=== PATIENT | male | born 1970 | race Caucasian/White ===

== ENCOUNTER 2017-02-02 20:31 | Observation (INO) | payer SELFPAY ==
[2017-02-02] MEDS ORDERED: Sodium Chloride 0.9% 1,000 ML IV ONE (20:51)
--- NOTE | 2017-02-02 20:53 | C.PDOC ---
History Of Present Illness A 46 y/o male c/o left interior chest pain for 3 hrs [employer]. Pt notes the pain as mild in nature. Pt is able to speak in full sentences, but denies SOB, palpitations, diaphoresis, lightheadedness, fever, chills, nausea, vomiting, diarrhea, dizziness, or any other complaints. Pt notes that he ran out of medications and was evicted from his apartment. Time Seen by Provider: 02/02/17 20:51 Chief Complaint (Nursing): Chest Pain History Per: Patient History/Exam Limitations: no limitations Onset/Duration Of Symptoms: Hrs (3) Current Symptoms Are (Timing): Still Present Severity: Mild Associated Symptoms: denies: Diaphoresis Recent travel outside of the [place]: No Additional History Per: Patient Past Medical History Reviewed: Historical Data, Nursing Documentation, Vital Signs Vital Signs: Last Vital Signs Temp 98.6 F 02/02/17 20:36 Pulse 77 02/02/17 20:36 Resp 18 02/02/17 20:36 BP 133/81 02/02/17 20:50 Pulse Ox 95 02/02/17 22:10 - Medical History PMH: Diabetes, Fractures (L arm screws- FX), HTN, Hypercholesterolemia, Pancreatitis Surgical History: Coronary Stent (February 21, 2014 x1 stent) - [facility] Procedures PULSATION BALLOON IMPLAN (07/06/14) RT & LT HEART ANGIOCARD (07/06/14) Family History: States: Unknown Family Hx - Social History Hx Tobacco Use: No Hx Alcohol Use: No Hx Substance Use: No - Immunization History Hx Tetanus Toxoid Vaccination: No Hx Influenza Vaccination: No Hx Pneumococcal Vaccination: No Review Of Systems Except As Marked, All Systems Reviewed And Found Negative. Constitutional: Negative for: Fever, Chills Cardiovascular: Positive for: Chest Pain (Interior chest pain). Negative for: Palpitations, Light Headedness Respiratory: Negative for: Shortness of Breath Gastrointestinal: Negative for: Nausea, Vomiting, Diarrhea Neurological: Negative for: Dizziness Physical Exam - Physical Exam Appears: Non-toxic, No Acute Distress Skin: Warm, Dry Head: Atraumatic, Normacephalic Eye(s): bilateral: Normal Inspection Chest: Symmetrical Cardiovascular: Rhythm Regular, No Murmur Respiratory: Normal Breath Sounds, No Accessory Muscle Use, No Rales, No Rhonchi , No Wheezing Gastrointestinal/Abdominal: Soft, No Tenderness, No Guarding, No Rebound Neurological/Psych: Oriented x3, Normal Speech (Speaking in full sentences), Normal Cognition, Other (No focal deficit) ED Course And Treatment - Laboratory Results Result Diagrams: 02/02/17 21:11 02/02/17 21:11 ECG: Interpreted By Me, Viewed By Me ECG Rhythm: Sinus Rhythm ECG Interpretation: No Acute Changes Interpretation Of ECG: NSR, Q wave in III, AVF, inferior infarct age indeterminate. Rate From EC O2 Sat by Pulse Oximetry: 95 (RA) Pulse Ox Interpretation: Normal - Radiology CXR: Interpreted by Me CXR Interpretation: Yes: No Acute Disease, Other (normal chest x-ray). No: Infiltrates, Cardiomegaly, Pnemothorax Medical Decision Making Medical Decision Making: Impression: 46 y/o male c/o chest pain that began 3 hrs [employer]. Plans: EKG Blood labs CXR Toradol IV fluids Reassess Disposition Discussed With Dr.: Hernando Ocasio Doctor Will See Patient In The: Hospital Counseled Patient/Family Regarding: Diagnosis - Disposition Disposition: HOSPITALIZED Disposition Time: 22:09 Condition: STABLE - POA Present On Arrival: None - Clinical Impression Clinical Impression: Chest pain, Diabetes mellitus - Scribe Statement The provider has reviewed the documentation as recorded by the Scribgila mariscal All medical record entries made by the Navidibe were at my direction and personally dictated by me. I have reviewed the chart and agree that the record accurately reflects my personal performance of the history, physical exam, medical decision making, and the department course for this patient. I have also personally directed, reviewed, and agree with the discharge instructions and disposition.
--- NOTE | 2017-02-02 20:55 | C.PDOC ---
Time Seen by Provider: 02/02/17 20:51 Chief Complaint (Nursing): Chest Pain Past Medical History Vital Signs: Last Vital Signs Temp 98.6 F 02/02/17 20:36 Pulse 77 02/02/17 20:36 Resp 18 02/02/17 20:36 BP 149/87 02/02/17 20:36 Pulse Ox 95 02/02/17 20:36 - Medical History PMH: Diabetes, Fractures (L arm screws- FX), HTN, Hypercholesterolemia, Pancreatitis Surgical History: Coronary Stent (February 21, 2014 x1 stent) - [facility] Procedures PULSATION BALLOON IMPLAN (07/06/14) RT & LT HEART ANGIOCARD (07/06/14) Family History: States: Unknown Family Hx - Social History Hx Tobacco Use: No Hx Alcohol Use: No Hx Substance Use: No - Immunization History Hx Tetanus Toxoid Vaccination: No Hx Influenza Vaccination: No Hx Pneumococcal Vaccination: No ED Course And Treatment ECG: Interpreted By Me, Viewed By Me ECG Rhythm: Sinus Rhythm ECG Interpretation: No Acute Changes Interpretation Of ECG: NSR, Q wave in III, AVF, inferior infarct age indeterminate. Rate From EC O2 Sat by Pulse Oximetry: 95 Pulse Ox Interpretation: Normal Disposition - Disposition Referrals: Non [facility] Provider, [Primary Care Provider] -
[2017-02-02] MEDS ORDERED: Sodium Chloride 0.9% 1,000 ML ONE (21:12)
[2017-02-02] MEDS ORDERED: Nitroglycerin 2% Ointment Foilpak UD TOP STA (21:12)
[2017-02-02 21:30] LABS: BASO % 0.4 % (0.0-2.0); EOS # 0.1 K/uL (0.0-0.7); HEMATOCRIT 41.9 % (35.0-51.0); LYMPH # 2.4 K/uL (1.0-4.3); LYMPH % 31.2 % (20.0-40.0); MEAN CELL VOLUME 87.2 fL (80.0-94.0); MEAN CORPUSCULAR HEMOGLOBIN 28.7 pg (27.0-31.0); MEAN CORPUSCULAR HGB CONC 32.9 g/dL (33.0-37.0); MONO # 0.6 K/uL (0.0-0.8); MONO % 8.2 % (0.0-10.0); RED CELL DISTRIBUTION WIDTH 13.7 % (11.5-14.5); WHITE BLOOD COUNT 7.9 K/uL (4.8-10.8)
[2017-02-02 21:41] LABS: CHLORIDE 105 mmol/L (98-107); POTASSIUM 3.4 mmol/L (3.6-5.2); SODIUM 139 mmol/L (132-148)
[2017-02-02 21:42] LABS: PARTIAL THROMBOPLASTIN TIME 30 SECONDS (21-34)
[2017-02-02 21:43] LABS: GFR AFRICAN-AMERICAN > 60
[2017-02-02 21:44] LABS: ALKALINE PHOSPHATASE 102 U/L (38-126); ALT/SGPT 28 U/L (21-72); AST/SGOT 28 U/L (17-59); BILIRUBIN,TOTAL 0.6 mg/dL (0.2-1.3); BLOOD UREA NITROGEN 17 mg/dL (9-20); CALCIUM 8.7 mg/dl (8.6-10.4); CARBON DIOXIDE 24 mmol/L (22-30); GLUCOSE,RANDOM 385 mg/dL (75-110); TOTAL PROTEIN 7.5 g/dL (6.3-8.3)
[2017-02-02] MEDS ORDERED: Nitroglycerin 2% Ointment Foilpak UD TOP ONE (21:44)
[2017-02-02] MEDS ORDERED: (Novolin R) Insulin Human Regular 100 units/ml vial SC STA (22:11)
[2017-02-02] MEDS ORDERED: (Novolin R) Insulin Human Regular 100 units/ml vial ONE (22:28)
--- NOTE | 2017-02-03 02:43 | CP.PCM.HP ---
History of Present Illness - History of Present Illness History of Present Illness: CC: chest pain HPI: Patient is a 46 M PMHx CAD, VA, DM, HTN, Hyperlipidemia presenting with chest pain for 3 days. Patient reports pain is in the middle of his chest and does not radiate down his arm or up his jaw and he has no associated SOB or diaphoresis. Patient reports the pain comes and goes and is intermittent throughout the day usually when he is thinking of things that are troubling him. 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 Patient states when he gets anxious he has the chest pain. Patient denied fever, chills, weakness, headache, dizziness, palpitations, SOB, cough, abd pain, nause,a vomiting, bowel/bladder complaints, pain/swelling in his legs bilaterally, back pain, recent travel, recent sickness, change in weight, change in appetite. PMHx: CAD, VA, DM, HTN, Hyperlipidemia PSHx: pancreatic surgery and hernia repair Meds: pls see chart Allergies: NKDA FHx: father has heart problems and is 66years old SHx: denies smoking, past etoh abuse history but quit, denies illicit drug use. Patient told ED physician he was recently evicted from home and ran out of his meds. Patient works in construction. PMD: denies Present on Admission - Present on Admission Any Indicators Present on Admission: No Review of Systems - Constitutional Constitutional: As Per HPI. absent: Chills, Fever, Weakness - EENT Eyes: As Per HPI. absent: Change in Vision Ears: As Per HPI. absent: Dizziness Nose/Mouth/Throat: As Per HPI. absent: Post Nasal Drip, Sore Throat - Cardiovascular Cardiovascular: As Per HPI, Chest Pain. absent: Chest Pain with Activity, Dyspnea, Dyspnea on Exertion, Edema, Leg Edema - Respiratory Respiratory: As Per HPI. absent: Cough, Dyspnea, Chest Congestion - Gastrointestinal Gastrointestinal: As Per HPI. absent: Abdominal Pain, Constipation, Diarrhea, Nausea, Vomiting - Genitourinary Genitourinary: As Per HPI. absent: Dysuria, Urinary Frequency - Musculoskeletal Musculoskeletal: As Per HPI. absent: Numbness, Tingling - Integumentary Integumentary: As Per HPI, Rash (on top of patient's head) - Neurological Neurological: As Per HPI. absent: Tingling, Weakness - Psychiatric Psychiatric: As Per HPI, Anxiety - Endocrine Endocrine: As Per HPI. absent: Polydipsia, Polyphagia, Polyuria - Hematologic/Lymphatic Hematologic: As Per HPI. absent: Easy Bleeding, Easy Bruising, Lymphadenopathy Past Patient History - Infectious Disease Hx of Infectious Diseases: None - Past Medical History & Family History Past Medical History?: Yes - Past Social History Smoking Status: Never Smoked - CARDIAC Hx Cardiac Disorders: Yes Hx Hypercholesterolemia: Yes Hx Hypertension: Yes - PULMONARY Hx Respiratory Disorders: No - NEUROLOGICAL Hx Neurological Disorder: No - HEENT Hx HEENT Problems: No - RENAL Hx Chronic Kidney Disease: No - ENDOCRINE/METABOLIC Hx Endocrine Disorders: Yes Hx Diabetes Mellitus Type 2: Yes - HEMATOLOGICAL/ONCOLOGICAL Hx Blood Disorders: No - INTEGUMENTARY Hx Dermatological Problems: No - MUSCULOSKELETAL/RHEUMATOLOGICAL Hx Musculoskeletal Disorders: Yes Hx Falls: No Hx Fractures: Yes (L arm screws- FX) - GASTROINTESTINAL Hx Gastrointestinal Disorders: Yes Hx Pancreatitis: Yes - GENITOURINARY/GYNECOLOGICAL Hx Genitourinary Disorders: No - PSYCHIATRIC Hx Psychophysiologic Disorder: No Hx Substance Use: No - SURGICAL HISTORY Hx Surgeries: Yes Hx Coronary Stent: Yes (February 21, 2014 x1 stent) - ANESTHESIA Hx Anesthesia: Yes Hx Anesthesia Reactions: No Hx Malignant Hyperthermia: No Meds Allergies/Adverse Reactions: Allergies Allergy/AdvReac Type Severity Reaction Status Date / Time No Known Allergies Allergy Verified 02/02/17 20:36 Physical Exam - Constitutional Appears: Well, Non-toxic, No Acute Distress - Head Exam Head Exam: ATRAUMATIC, NORMAL INSPECTION, NORMOCEPHALIC Additional comments: ring rashes on top of patient's head - Eye Exam Eye Exam: EOMI, Normal appearance, PERRL. absent: Conjunctival injection, Scleral icterus Pupil Exam: NORMAL ACCOMODATION - ENT Exam ENT Exam: Mucous Membranes Moist - Neck Exam Neck exam: Positive for: Normal Inspection. Negative for: Lymphadenopathy - Respiratory Exam Respiratory Exam: Clear to Auscultation Bilateral, NORMAL BREATHING PATTERN. absent: Accessory Muscle Use, Rales, Rhonchi, Wheezes, Respiratory Distress - Cardiovascular Exam Cardiovascular Exam: REGULAR RHYTHM, RRR, +S1, +S2. absent: Systolic Murmur - GI/Abdominal Exam GI & Abdominal Exam: Normal Bowel Sounds, Soft. absent: Firm, Guarding, Rigid, Tenderness - Extremities Exam Extremities exam: Positive for: normal capillary refill, normal inspection, pedal pulses present. Negative for: pedal edema, tenderness - Back Exam Back exam: NORMAL INSPECTION. absent: rash noted, tenderness - Neurological Exam Neurological exam: Alert, CN II-XII Intact, Oriented x3 - Psychiatric Exam Psychiatric exam: Anxious - Skin Skin Exam: Dry, Intact, Normal Color, Warm Results - Vital Signs Recent Vital Signs: Last Vital Signs Temp 98.0 F 02/03/17 00:15 Pulse 70 02/03/17 01:15 Resp 20 02/03/17 00:15 BP 115/69 02/03/17 00:15 Pulse Ox 96 02/03/17 00:15 - Labs Result Diagrams: 02/02/17 21:11 02/02/17 21:11 Labs: Laboratory Results - last 24 hr 02/03/17 00:08 POC Glucose (mg/dL) 243 H Assessment & Plan - Assessment and Plan (Free Text) Assessment: 46 M PMHx CAD, VA, DM, HTN, Hyperlipidemia presenting with chest pain for 3 days Plan: Chest pain r/o ACS -first XIOMARA and EKG negative -f/u XIOMARA and EKG x 2 -ASA 81mg po daily -Likely secondary to anxiety and life stressors -f/u echo -Dr Sandoval cardiology consult Hx of DM2 -HgbA1c -Accucheck -RISS Hx of HTN -Toprol xl 25mg po daily -Monitor -f/u Lipid panel and TSH Hx of HLD -f/u lipid panel -Crestor 5mg po hs PPX -Heparin 5000u sc q12 -Pepcid 20mg po bid -SCDs -Heart healthy mod consistent carb diet Case discussed with Dr. Amarjit Mariee PGY1
[2017-02-03 08:18] LABS: BASO % 0.3 % (0.0-2.0); EOS # 0.1 K/uL (0.0-0.7); EOS % 1.3 % (0.0-4.0); HEMATOCRIT 38.3 % (35.0-51.0); LYMPH # 2.5 K/uL (1.0-4.3); LYMPH % 31.3 % (20.0-40.0); MEAN CELL VOLUME 87.8 fL (80.0-94.0); MEAN CORPUSCULAR HEMOGLOBIN 28.9 pg (27.0-31.0); MEAN CORPUSCULAR HGB CONC 32.9 g/dL (33.0-37.0); MEAN PLATELET VOLUME 8.8 fL (7.2-11.7); MONO # 0.6 K/uL (0.0-0.8); MONO % 7.3 % (0.0-10.0); NRBC % 0.1 % (0.0-2.0)
[2017-02-03] MEDS: (Novolog) Insulin Aspart, Recombinant 100 u/ml 10 ml vial SC SCH ×4 (08:22→21:34)
--- NOTE | 2017-02-03 08:49 | RAD ---
HISTORY: chest pain COMPARISON: Chest x-ray performed 10/03/26 TECHNIQUE: Chest PA and lateral FINDINGS: Examination limited by habitus. LUNGS: Mild biapical pleural thickening. No focal consolidation. Please note that chest x-ray has limited sensitivity for the detection of pulmonary masses. PLEURA: No significant pleural effusion identified. No definite pneumothorax . CARDIOVASCULAR: Heart size appears top normal. OSSEOUS STRUCTURES: No acute osseous abnormality identified. VISUALIZED UPPER ABDOMEN: Unremarkable. OTHER FINDINGS: None. IMPRESSION: Mild biapical pleural thickening. No focal consolidation, significant pleural effusion, or definite pneumothorax identified.
[2017-02-03] MEDS: Metoprolol Succinate 25 mg XL Tab PO SCH (09:26)
[2017-02-03 09:50] LABS: CHLORIDE 109 mmol/L (98-107)
[2017-02-03 09:51] LABS: POTASSIUM 3.4 mmol/L (3.6-5.2); SODIUM 139 mmol/L (132-148)
[2017-02-03 09:53] LABS: BILIRUBIN,TOTAL 0.5 mg/dL (0.2-1.3); CARBON DIOXIDE 23 mmol/L (22-30); CHOLESTEROL 183 mg/dL (0-199); GFR AFRICAN-AMERICAN > 60; TOTAL PROTEIN 6.3 g/dL (6.3-8.3)
[2017-02-03 09:54] LABS: ALKALINE PHOSPHATASE 89 U/L (38-126); ALT/SGPT 26 U/L (21-72); AST/SGOT 24 U/L (17-59); BLOOD UREA NITROGEN 18 mg/dL (9-20); GLUCOSE,RANDOM 224 mg/dL (75-110)
[2017-02-03 10:19] LABS: T4 8.18 ug/dL (5.5-11.0)
[2017-02-03 10:32] LABS: THYROID STIMULATING HORMONE 4.42 mIU/L (0.46-4.68)
[2017-02-03] MEDS ORDERED: Potassium Chloride 20 mEq ER Tab PO ONE (11:45)
--- NOTE | 2017-02-03 14:33 | CP.PCM.PN ---
Subjective - Date & Time of Evaluation Date of Evaluation: 02/03/17 Time of Evaluation: 14:31 - Subjective Subjective: Patient seen and examined at bedside. Patient is resting comfortably. No acute events overnight per nursing. Patient denies chest pain currently. He denies shortness of breath and palpitations. Patient reports he believes chest pain occurred due to stress from work/argument. Patient seems unaware of his medical history as he does not believe he has cardiac stents. It was discussed with patient that he will need better diabetes medical management. Patient denies fever, chills, shortness of breath, palpitations, abdominal pain, nausea, vomiting, constipation, diarrhea, urinary frequency and dysuria. Objective - Vital Signs/Intake and Output Vital Signs (last 24 hours): Temp Pulse Resp BP Pulse Ox 98.3 F 62 17 106/54 L 97 02/03/17 07:10 02/03/17 07:19 02/03/17 07:10 02/03/17 07:10 02/03/17 07:10 Intake and Output: 02/03/17 02/03/17 06:59 18:59 Intake Total 1200 Balance 1200 - Medications Medications: Current Medications Aspirin (Aspirin Chewable) 81 mg PO DAILY [facility] Last Admin: 02/03/17 09:26 Dose: 81 mg Famotidine (Pepcid) 20 mg PO BID [facility] Last Admin: 02/03/17 09:26 Dose: 20 mg Heparin Sodium (Porcine) (Heparin) 5,000 units SC Q12 [facility] Last Admin: 02/03/17 09:26 Dose: 5,000 units Insulin Aspart (Novolog) 0 unit SC ACHS [facility] PRN Reason: Protocol Last Admin: 02/03/17 11:55 Dose: 4 unit Metoprolol Succinate (Toprol Xl) 25 mg PO DAILY [facility] Last Admin: 02/03/17 09:26 Dose: 25 mg Rosuvastatin Calcium (Crestor) 5 mg PO HS [facility] - Labs Labs: 02/03/17 07:57 02/03/17 07:57 PT 10.8 SECONDS (9.7-12.2) 02/02/17 21:11 INR 1.0 02/02/17 21:11 APTT 30 SECONDS (21-34) 02/03/17 07:57 - Constitutional Appears: Non-toxic, No Acute Distress - Head Exam Head Exam: ATRAUMATIC, NORMAL INSPECTION, NORMOCEPHALIC - Eye Exam Eye Exam: EOMI, Normal appearance, PERRL - ENT Exam ENT Exam: Mucous Membranes Moist - Respiratory Exam Respiratory Exam: Clear to Ausculation Bilateral, NORMAL BREATHING PATTERN. absent: Rales, Rhonchi, Wheezes - Cardiovascular Exam Cardiovascular Exam: +S1, +S2. absent: Tachycardia - GI/Abdominal Exam GI & Abdominal Exam: Soft, Normal Bowel Sounds. absent: Firm, Guarding, Tenderness - Extremities Exam Extremities Exam: Normal Inspection. absent: Pedal Edema, Tenderness - Neurological Exam Neurological Exam: Alert, Awake, Oriented x3 - Psychiatric Exam Psychiatric exam: Normal Affect, Normal Mood - Skin Additional comments: keloid noted to occipital scalp Assessment and Plan - Assessment and Plan (Free Text) Assessment: Chest pain r/o ACS -XIOMARA x2 negative, f/u third XIOMARA -EKG NSR -repeat EKG: no acute changes -Cardiology, Dr. Sandoval, consulted. Help appreciated -f/u Echocardiogram -ASA 81mg po daily -TSH/T4 wnl Uncontrolled DM2 -HgbA1c 13.0 -Accucheck -RISS -Monitor Hx of HTN -Toprol xl 25mg po daily -Monitor Hx of HLD -Lipid panel: Triglycerides 410, CHL 183, LDL 83, HDL 38 -Crestor 5mg po hs PPX -Heparin 5000u sc q12 -Pepcid 20mg po bid -SCDs -Heart healthy mod consistent carb diet
[2017-02-04] MEDS: (Novolog) Insulin Aspart, Recombinant 100 u/ml 10 ml vial SC SCH ×2 (08:06→12:53)
[2017-02-04 08:54] VITALS: BP 113/76; PULSE 67; RESP 18; TEMP 97.9; O2SAT 96
[2017-02-04 09:04] LABS: BASO % 0.4 % (0.0-2.0); EOS # 0.1 K/uL (0.0-0.7); EOS % 1.6 % (0.0-4.0); HEMATOCRIT 44.1 % (35.0-51.0); LYMPH # 2.8 K/uL (1.0-4.3); LYMPH % 35.6 % (20.0-40.0); MEAN CELL VOLUME 87.7 fL (80.0-94.0); MEAN CORPUSCULAR HEMOGLOBIN 28.8 pg (27.0-31.0); MEAN CORPUSCULAR HGB CONC 32.9 g/dL (33.0-37.0); MEAN PLATELET VOLUME 9.2 fL (7.2-11.7); MONO # 0.6 K/uL (0.0-0.8); MONO % 7.4 % (0.0-10.0); NRBC % 0.1 % (0.0-2.0); WHITE BLOOD COUNT 7.8 K/uL (4.8-10.8)
[2017-02-04 09:24] LABS: CHLORIDE 104 mmol/L (98-107); SODIUM 136 mmol/L (132-148)
[2017-02-04 09:25] LABS: POTASSIUM 3.5 mmol/L (3.6-5.2)
[2017-02-04 09:27] LABS: ALB/GLOB RATIO 0.9 (1.0-2.1); ALKALINE PHOSPHATASE 104 U/L (38-126); AST/SGOT 26 U/L (17-59); BILIRUBIN,TOTAL 0.7 mg/dL (0.2-1.3); BLOOD UREA NITROGEN 13 mg/dL (9-20); CARBON DIOXIDE 24 mmol/L (22-30); GFR AFRICAN-AMERICAN > 60; GLUCOSE,RANDOM 247 mg/dL (75-110); TOTAL PROTEIN 7.2 g/dL (6.3-8.3)
[2017-02-04 09:28] LABS: ALT/SGPT 28 U/L (21-72); MAGNESIUM 2.1 mg/dL (1.6-2.3)
[2017-02-04] MEDS: Metoprolol Succinate 25 mg XL Tab PO SCH (10:10)
--- NOTE | 2017-02-04 14:39 | CP.PCM.DIS ---
Provider - Provider Date of Admission: 02/02/17 22:12 Attending physician: Hernando Ocasio MD Primary care physician: Referred to [facility] Consults: Cardio - Dr. Sandoval Time Spent in preparation of Discharge (in minutes): 40 Hospital Course - Lab Results Lab Results: Most Recent Lab Values WBC 7.8 K/uL (4.8-10.8) 02/04/17 08:50 RBC 5.03 Mil/uL (4.40-5.90) 02/04/17 08:50 Hgb 14.5 g/dL (12.0-18.0) 02/04/17 08:50 Hct 44.1 % (35.0-51.0) 02/04/17 08:50 MCV 87.7 fL (80.0-94.0) 02/04/17 08:50 MCH 28.8 pg (27.0-31.0) 02/04/17 08:50 MCHC 32.9 g/dL (33.0-37.0) L 02/04/17 08:50 RDW 14.0 % (11.5-14.5) 02/04/17 08:50 Plt Count 272 K/uL (130-400) 02/04/17 08:50 MPV 9.2 fL (7.2-11.7) 02/04/17 08:50 Neut % (Auto) 55.0 % (50.0-75.0) 02/04/17 08:50 Lymph % (Auto) 35.6 % (20.0-40.0) 02/04/17 08:50 Norton % (Auto) 7.4 % (0.0-10.0) 02/04/17 08:50 Eos % (Auto) 1.6 % (0.0-4.0) 02/04/17 08:50 Baso % (Auto) 0.4 % (0.0-2.0) 02/04/17 08:50 Neut # 4.3 K/uL (1.8-7.0) 02/04/17 08:50 Lymph # 2.8 K/uL (1.0-4.3) 02/04/17 08:50 Norton # 0.6 K/uL (0.0-0.8) 02/04/17 08:50 Eos # 0.1 K/uL (0.0-0.7) 02/04/17 08:50 Baso # 0.0 K/uL (0.0-0.2) 02/04/17 08:50 PT 10.8 SECONDS (9.7-12.2) 02/02/17 21:11 INR 1.0 02/02/17 21:11 APTT 30 SECONDS (21-34) 02/03/17 07:57 D-Dimer, Quantitative < 200 ng/mlDDU (0-243) 02/02/17 21:11 Sodium 136 mmol/L (132-148) 02/04/17 08:50 Potassium 3.5 mmol/L (3.6-5.2) L 02/04/17 08:50 Chloride 104 mmol/L (98-107) 02/04/17 08:50 Carbon Dioxide 24 mmol/L (22-30) 02/04/17 08:50 Anion Gap 12 (10-20) 02/04/17 08:50 BUN 13 mg/dL (9-20) 02/04/17 08:50 Creatinine 0.6 MG/DL (0.8-1.5) L 02/04/17 08:50 Est GFR ( Amer) > 60 02/04/17 08:50 Est GFR (Non-Af Amer) > 60 02/04/17 08:50 POC Glucose (mg/dL) 240 mg/dL (65-110) H 02/04/17 11:33 Random Glucose 247 mg/dL (75-110) H 02/04/17 08:50 Hemoglobin A1c 13.0 % (4.2-6.5) H D 02/03/17 07:57 Calcium 9.0 mg/dl (8.6-10.4) 02/04/17 08:50 Phosphorus 3.0 mg/dL (2.5-4.5) 02/03/17 07:57 Magnesium 2.1 mg/dL (1.6-2.3) 02/04/17 08:50 Total Bilirubin 0.7 mg/dL (0.2-1.3) 02/04/17 08:50 AST 26 U/L (17-59) 02/04/17 08:50 ALT 28 U/L (21-72) 02/04/17 08:50 Alkaline Phosphatase 104 U/L (38-126) 02/04/17 08:50 Total Creatine Kinase 153 U/L (55-170) 02/03/17 07:57 CK-MB (Mass) 0.77 ng/mL (0.0-3.38) 02/03/17 07:57 Troponin I < 0.0120 ng/mL (0.00-0.120) 02/02/17 21:11 Troponin I, Quant < 0.0120 ng/mL (0.00-0.120) 02/03/17 07:57 Total Protein 7.2 g/dL (6.3-8.3) 02/04/17 08:50 Albumin 3.5 g/dL (3.5-5.0) 02/04/17 08:50 Globulin 3.7 gm/dL (2.2-3.9) 02/04/17 08:50 Albumin/Globulin Ratio 0.9 (1.0-2.1) L 02/04/17 08:50 Triglycerides 410 mg/dL (0-149) H D 02/03/17 07:57 Cholesterol 183 mg/dL (0-199) 02/03/17 07:57 LDL Cholesterol Direct 83 mg/dL (0-129) 02/03/17 07:57 HDL Cholesterol 38 mg/dL (30-70) 02/03/17 07:57 Thyroxine (T4) 8.18 ug/dL (5.5-11.0) 02/03/17 07:57 TSH 3rd Generation 4.42 mIU/L (0.46-4.68) 02/03/17 07:57 - Hospital Course Hospital Course: On admission: Patient is a 46 M PMHx CAD, IN, DM, HTN, Hyperlipidemia presenting with chest pain for 3 days. Patient reports pain is in the middle of his chest and does not radiate down his arm or up his jaw and he has no associated SOB or diaphoresis. Patient reports the pain comes and goes and is intermittent throughout the day usually when he is thinking of things that are troubling him. 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 Patient states when he gets anxious he has the chest pain. Patient denied fever, chills, weakness, headache, dizziness, palpitations, SOB, cough, abd pain, nause,a vomiting, bowel/bladder complaints, pain/swelling in his legs bilaterally, back pain, recent travel, recent sickness, change in weight, change in appetite. Hospital Course: Patient worked up for chest pain. Patient had 3 negative ROMIs. EKG shows no change from Sep [address] Sandoval read the ECHO for us which shows left ventricular enlargement, EF of 54%, mild to moderate pulmonary hypertension and inferior wall hypokinesis. Patient also had HgbA1C of 13. Patient started on metformin [address] Varghese did not want to start more than that as to not irritate his liver. Patietn should be increased to metformin 1000mg PO BID and may need to be put on insulin. Patient seen and examined this AM. He had no pain and felt great. On discharge: Patient to be discharged home per Dr. Varghese. Patient has diabetes and CAD. Patient did not have a heart attack during this admission but it seems he had an inferior wall IN in the past. Patient's HgbA1C (diabetes number) was 13, which should be below 7. Patient MUST take newly prescribed medications as directed below. Patient should follow up with the [facility] (the clinic in the basement) within one week. Patient needs to get a script for a higher dose of metformin (diabetes medication) from the clinic. He was not started on a higher dose on discharge because we do not want to cause any liver problems. Patient needs metformin to be gradually increased. Patient also needs to obtain a referral for the fly maker, Dr. Sandoval, to get an outpatient stress test. Patient should return to ED immediately if symptoms return or worsen. Newly prescribed medications: Aspirin 81mg by mouth once a day #30 Simvastatin 10mg by mouth every night #30 Metformin 500mg by mouth twice a day #60 Metoprolol tartrate 12.5mg by mouth twice a day #60 Google translate to Pashto: Paciente a ser dado de liss por el Dr. Varghese. El paciente tiene diabetes y CAD. El paciente no tuvo un ataque al corazn shivani esta admisin, maulik parece que denita darlin pared inferior IN en el pasado. El HgbA1C del paciente (n bushra de diabetes) fue de 13, que debe ser inferior a 7. El paciente DEBE viri los nuevos medicamentos recetados bryce se indica a continuacin. El paciente debe hacer un seguimiento con el [facility] dentro de darlin semana. El paciente necesita obtener un flor para darlin dosis ms liss de metformina (medicamento para la diabetes) de la cl rosita. No se inici darlin dosis ms liss al liss porque no queremos causar ningn problema de hgado. El paciente necesita metformina para ser aumentado gradualmente. El paciente tambin necesita obtener darlin derivacin para que el cardilogo, el Dr. Sandoval, reciba darlin prueba de estrs ambulatorio. El paciente debe regresar a la DE inmediatamente si los sntomas regresan o empeoran. Medicamentos recin prescritos: Aspirina 81mg por va oral darlin vez al da # 30 Simvastatina 10 mg por va oral cada noche # 30 Metformina 500mg por va oral dos veces al da # 60 Metoprolol tartrato 12,5 mg por va oral dos veces al da # 60 Discharge Exam - Head Exam Head Exam: ATRAUMATIC, NORMAL INSPECTION, NORMOCEPHALIC - Eye Exam Eye Exam: EOMI - ENT Exam ENT Exam: Mucous Membranes Moist - Respiratory Exam Respiratory Exam: Clear to PA & Lateral, NORMAL BREATHING PATTERN, UNREMARKABLE. absent: Rales, Rhonchi, Wheezes - Cardiovascular Exam Cardiovascular Exam: REGULAR RHYTHM, +S1, +S2. absent: Gallop, Rubs, Systolic Murmur - GI/Abdominal Exam GI & Abdominal Exam: Normal Bowel Sounds, Soft. absent: Tenderness - Extremities Exam Extremities exam: normal capillary refill, pedal pulses present - Neurological Exam Neurological exam: Alert, Oriented x3 - Psychiatric Exam Psychiatric exam: Normal Affect, Normal Mood - Skin Skin Exam: Normal Color, Warm Discharge Plan - Discharge Medications Prescriptions: Aspirin [Aspirin Chewable] 81 mg PO DAILY #30 metFORMIN [glucOPHAGE] 500 mg PO BIDCC #60 tab Metoprolol Tartrate [Lopressor] 12.5 mg PO BID #60 tab Simvastatin 10 mg PO HS #30 tablet - Follow Up Plan Condition: STABLE Disposition: HOME/ ROUTINE Instructions: Chest Pain (DC), Diabetes Mellitus Type 2 in Adults (DC) Additional Instructions: Patient to be discharged home per Dr. Varghese. Patient has diabetes and CAD. Patient did not have a heart attack during this admission but it seems he had an inferior wall IN in the past. Patient's HgbA1C (diabetes number) was 13, which should be below 7. Patient MUST take newly prescribed medications as directed below. Patient should follow up with the [facility] (the clinic in the basement) within one week. Patient needs to get a script for a higher dose of metformin (diabetes medication) from the clinic. He was not started on a higher dose on discharge because we do not want to cause any liver problems. Patient needs metformin to be gradually increased. Patient also needs to obtain a referral for the fly maker, Dr. Sandoval, to get an outpatient stress test. Patient should return to ED immediately if symptoms return or worsen. Newly prescribed medications: Aspirin 81mg by mouth once a day #30 Simvastatin 10mg by mouth every night #30 Metformin 500mg by mouth twice a day #60 Metoprolol tartrate 12.5mg by mouth twice a day #60 Google translate to Pashto: Paciente a ser dado de liss por el Dr. Varghese. El paciente tiene diabetes y CAD. El paciente no tuvo un ataque al corazn shivani esta admisin, maulik parece que denita darlin pared inferior IN en el pasado. El HgbA1C del paciente (n bushra de diabetes) fue de 13, que debe ser inferior a 7. El paciente DEBE viri los nuevos medicamentos recetados bryce se indica a continuacin. El paciente debe hacer un seguimiento con el [facility] dentro de darlin semana. El paciente necesita obtener un flor para darlin dosis ms liss de metformina (medicamento para la diabetes) de la cl rosita. No se inici darlin dosis ms liss al liss porque no queremos causar ningn problema de hgado. El paciente necesita metformina para ser aumentado gradualmente. El paciente tambin necesita obtener darlin derivacin para que el cardilogo, el Dr. Sandoval, reciba darlin prueba de estrs ambulatorio. El paciente debe regresar a la DE inmediatamente si los sntomas regresan o empeoran. Medicamentos recin prescritos: Aspirina 81mg por va oral darlin vez al da # 30 Simvastatina 10 mg por va oral cada noche # 30 Metformina 500mg por va oral dos veces al da # 60 Metoprolol tartrato 12,5 mg por va oral dos veces al da # 60 Referrals: [facility] [Outside] Kamron Sandoval MD [Staff Provider] - Non [facility] Provider, [Non-Staff] -
--- NOTE | 2017-02-04 16:20 | CARD ---
APPROVED REPORT EXAM: Two-dimensional and M-mode echocardiogram with Doppler and color Doppler. Other Information Quality : GoodRhythm : NSR INDICATION CAD Status/Post SD RISK FACTORS Hypertension Diabetes M-Mode DIMENSIONS RVDd2.54 (2.1-3.2cm)Left Atrium (MM)3.87 (2.5-4.0cm) IVSd0.91 (0.7-1.1cm)Aortic Root3.55 (2.2-3.7cm) LVDd5.95 (4.0-5.6cm)Aortic Cusp Exc.1.76 (1.5-2.0cm) PWd0.85 (0.7-1.1cm)FS (%) 28 % LVDs4.26 (2.0-3.8cm)LVEF (%)54 (>50%) Mitral Valve MV E Xcwwlcvn55.3cm/sMV A Epczisvh37.6cm/sE/A ratio1.1 TDI E/Lateral E'0.0E/Medial E'0.0 Tricuspid Valve TR Peak Nytghtqt617az/sTR Peak Gr.[id number] LEFT VENTRICLE The Left Ventricle is mildly dilated. There is normal left ventricular wall thickness. Left ventricle systolic function is normal. The Ejection Fraction is 50-55%. There is normal LV segmental wall motion. The left ventricular diastolic function is normal. RIGHT VENTRICLE The right ventricle is normal size. There is normal right ventricular wall thickness. The right ventricular systolic function is normal. ATRIA The left atrium size is normal. The right atrium size is normal. The interatrial septum is intact with no evidence for an atrial septal defect. AORTIC VALVE The aortic valve is normal in structure. No aortic regurgitation is present. There is no aortic valvular stenosis. There is no aortic valvular vegetation. MITRAL VALVE The mitral valve is normal in structure. There is no evidence of mitral valve prolapse. There is no mitral valve stenosis. Mitral regurgitation is mild. TRICUSPID VALVE The tricuspid valve is normal in structure. There is mild tricuspid regurgitation. Right ventricular systolic pressure is estimated at 30-40 mmHg. There is mild pulmonary hypertension. PULMONIC VALVE The pulmonic valve is not well visualized. There is no pulmonic valvular regurgitation. GREAT VESSELS The aortic root is normal in size. PERICARDIAL EFFUSION There is no significant pericardial effusion. <Conclusion> Left ventricle systolic function is normal. The Ejection Fraction is 50-55%. No aortic regurgitation is present. Mitral regurgitation is mild. There is mild tricuspid regurgitation. There is mild pulmonary hypertension. There is no pulmonic valvular regurgitation.
--- NOTE | 2017-02-05 08:38 | CARD ---
APPROVED REPORT EKG Measurement Heart [id number] <Conclusion> Normal sinus rhythm Inferior infarct, age undetermined Abnormal ECG
== END 2017-02-04 15:06 | disposition home or self-care (01) ==
LOC: C.ER 20:31 → SUPCPDRO 20:31 → C.9E 22:12 → C.6T 23:03 → UNDODISOB 02-04 13:47
PROVIDERS: ADMIT Internal Medicine; ATTEND Internal Medicine
DX: R07.9 Chest pain, unspecified (principal); R06.02 Shortness of breath; E11.9 Type 2 diabetes mellitus without complications; I10 Essential (primary) hypertension; I25.10 Atherosclerotic heart disease of native coronary artery without angina pectoris
CPT/HCPCS: 36415; 71020; 80053; 80061; 82948; 83036; 83735; 84100; 84436; 84443; 84484; 85025; 85378; 85610; 85730; 93005; 93306; 96360; 96372; 96374; 99283; G0378; J1644; J1885; J7040